=== PATIENT | female | born 1970 | race Caucasian/White ===

== ENCOUNTER 2020-11-09 21:48 | Emergency (ER) | payer OTHER ==
[~2020-11-09] VITALS: Ht 160 cm; Wt 71.2 kg
[2020-11-09] MEDS ORDERED: ACYC-57 PO (22:18)
--- NOTE | 2020-11-09 22:21 | NUR ---
patient resting in bed in NAD at the moment. i was notified by weld technician that while patient transferring to [facility], patient had another episode of "the roller coaster" and HR elevated to 140's and patient became in a panic state. this only lasted as reports "a few seconds". patient denies CORTES, SOB, CP or heart palpitations. call higgins in reach. at bedside.will continue to monitor. patient also denies a stiff neck but refuses to move her head from neutral position due to "i dont want to because im afraid ill get dizzy".
[2020-11-09] MEDS ORDERED: ASPIRIN 81 MG TABLET CHEW ONE (22:25)
[2020-11-09] MEDS ORDERED: ASPIRIN 325 MG TABLET PO ONE (22:30)
[2020-11-09] MEDS ORDERED: SODIUM CHLORIDE FLUSH 10ML SYR IVF ONE (22:30)
[2020-11-09] MEDS ORDERED: MECLIZINE CHEWABLE 25 MG TAB ONE (22:54)
[2020-11-09 22:56] LABS: BASOPHILS % (AUTO) 1 % (0-1); EOSINOPHILS % (AUTO) 2 % (1-7); LYMPHOCYTES % (AUTO) 39 % (22-44); MEAN CORPUSCULAR HEMOGLOBIN 31.8 pg (27.0-34.8); MEAN CORPUSCULAR HGB CONC 33.5 g/dL (32.4-35.8); MEAN PLATELET VOLUME 8.7 fL (7.4-10.4); MONOCYTES % (AUTO) 9 % (2-9); NEUTROPHILS % (AUTO) 49 % (42-75); PLATELET COUNT 164 x10^3/uL (130-400); RED BLOOD COUNT 4.89 x10^6/uL (3.82-5.3); RED CELL DISTRIBUTION WIDTH 13.2 % (9.6-15.2)
[2020-11-09 22:57] LABS: ALANINE AMINOTRANSFERASE 52 U/L (12-78); ALBUMIN 3.7 g/dL (3.4-5.0); ANION GAP 10 mmol/L (5-15); CALCIUM 8.2 mg/dL (8.5-10.1); CHLORIDE 111 mmol/L (98-107)
[2020-11-09 22:58] LABS: MD NO
--- NOTE | 2020-11-09 22:58 | NUR ---
debrox ear drops not filled in [facility]. paper request sent to pharmacy.
[2020-11-09] MEDS ORDERED: MECLIZINE CHEWABLE 25 MG TAB PO ONE (23:00)
[2020-11-09] MEDS ORDERED: CARBAMIDE PEROXIDE EAR DROPS 6.5%, 15ML RIGHT EAR ONE (23:00)
[2020-11-09 23:02] LABS: ALKALINE PHOSPHATASE 69 U/L (45-117); BILIRUBIN,TOTAL 0.7 mg/dL (0.2-1.0); CREATININE 0.84 mg/dL (0.55-1.02); TROPONIN I < 0.015 ng/mL (0.000-0.045)
--- NOTE | 2020-11-09 23:16 | NUR ---
ear drops instilled in R ear as ordered. HOB lowered and pillow provided. patient able to lay semi-L sided for drops to stay in ear canal for purpose to later irrigate ear. call higgins in reach. safety maintained. patient reports decrease in symptoms since previous medications administered. will continue to monitor.
--- NOTE | 2020-11-09 23:45 | NUR ---
irrigated ear without success with warm water and small amount of hydrogen peroxide. re-instilled drops to R ear. safety maintained. will continue to monitor.
--- NOTE | 2020-11-10 00:40 | NUR ---
second attempt of irrigating R ear with warm water and small amount of hydrogen peroxide. successful large ball of wax removed from ear. call higgins in reach. safety maintained. will continue to monitor.
[2020-11-10 00:52] VITALS: BP 93/64
== END 2020-11-10 01:29 | disposition home or self-care (01) ==
LOC: ED 11-10 01:22
DX: H61.21 Impacted cerumen, right ear (principal); H81.11 Benign paroxysmal vertigo, right ear; R94.31 Abnormal electrocardiogram [ECG] [EKG]; R07.9 Chest pain, unspecified
CPT/HCPCS: 36415; 71045; 80053; 84484; 85025; 93005; 99285